=== PATIENT | female | born 1970 | race Two or more races ===

== ENCOUNTER 2018-03-23 14:35 | Emergency (ER) | payer OTHER ==
[2018-03-23] MEDS ORDERED: ALBUTEROL SO4 2.5/IPRATROPIUM 0.5 INH SOL 3 ML VIAL.NEB. NEB ONE ×2 (14:40→14:51)
--- NOTE | 2018-03-23 14:40 | PDOC ---
Rapid Medical Evaluation Time Seen by Provider: 03/23/18 14:37 Medical Evaluation: Allergies Allergy/AdvReac Type Severity Reaction Status Date / Time No Known Allergies Allergy Verified 07/22/14 17:38 03/23/18 14:37 I have performed a brief in-person evaluation of this patient. The patient presents with a chief complaint of: cough back pain for 3 months . LMP 02/23/18 no foreign travel. Pertinent physical exam findings:lungs with wheezing and coarse lung sounds I have ordered the following:[id number] , upreg The patient will proceed to the ED for further evaluation. 03/23/18 14:40 Discharge Disposition - Diagnosis Acute bronchitis Qualifiers: Bronchitis organism: other organism Qualified Code(s): J20.8 - Acute bronchitis due to other specified organisms - Discharge Dispostion Disposition: HOME Condition at time of disposition: Stable - Prescriptions Prescriptions: Albuterol Sulfate Inhaler - [Ventolin HFA Inhaler -] 2 inh PO Q6H #1 inh predniSONE [Deltasone -] 40 mg PO BID #10 tablet Ranitidine HCl [Zantac] 150 mg PO BID #10 tablet - Referrals Referrals: Good Le MD [Staff Physician] - - Patient Instructions Printed Discharge Instructions: DI for Acute Bronchitis Additional Instructions: Increase fluids Rest Tylenol alternate with Motrin a needed every 6 hours for pain/fever Prednisone as prescribed/must finish dosages Inhaler as prescribed Follow up with your physician or the one listed on your discharge Return to the ER for severe/persistent/worsening symptoms - Post Discharge Activity
[2018-03-23 14:41] VITALS: BP 125/74; PULSE 74; TEMP 97.9; BMI 27.2
--- NOTE | 2018-03-23 15:07 | PDOC ---
History of Present Illness - General Chief Complaint: Respiratory Stated Complaint: CHEST PAIN Time Seen by Provider: 03/23/18 14:37 History Source: Patient Exam Limitations: No Limitations - History of Present Illness Initial Comments: 03/23/18 15:03 Best Contact:[phone] PCP:n/a Pmhx:0 Pshx:0 Allergies:NKDA FH:0 Social Hx: Cigarettes/ 0 Alcohol/ 0 Drugs/0 LMP:02/23/2018 47-year-old female presents to the ER with her daughter complaining of nonproductive cough without fever, chills, nausea/vomiting, headache, dizziness , lightheadedness, facial pains, rhinorrhea, nasal congestion, earache, sore throat, difficulty swallowing, neck pain/stiffness, back pains, chest pain, shortness of breath, abdominal pains, flank pains, urinary symptoms. Patient states she had the same symptoms with fever 2 weeks ago and was given amoxicillin. Patient states she feels a lot better but when she takes a deep breath, she coughs. Patient denied any fever. Patient states she is able to eat and drink without any difficulties. Patient has not taken anything over-the- counter for supportive care. Past History - Past Medical History Allergies/Adverse Reactions: Allergies Allergy/AdvReac Type Severity Reaction Status Date / Time No Known Allergies Allergy Verified 07/22/14 17:38 Home Medications: Ambulatory Orders NK [No Known Home Medication] 03/23/18 COPD: No - Suicide/Smoking/Psychosocial Hx Smoking History: Never smoked Review of Systems - Review of Systems Able to Perform ROS?: Yes Comments:: 03/23/18 15:03 CONSTITUTIONAL: Absent: fever, chills, diaphoresis, generalized weakness, malaise, loss of appetite HEENT: Absent: rhinorrhea, nasal congestion, throat pain, throat swelling, difficulty swallowing, mouth swelling, ear pain, eye pain, visual Changes CARDIOVASCULAR: Absent: chest pain, loss of consciousness, palpitations, irregular heart rate, peripheral edema RESPIRATORY: +cough, wheeziing Absent: shortness of breath, dyspnea with exertion, orthopnea, stridor, hemoptysis GASTROINTESTINAL: Absent: abdominal pain, abdominal distension, nausea, vomiting, diarrhea, constipation, melena, hematochezia GENITOURINARY: Absent: dysuria, frequency, urgency, hesitancy, hematuria, flank pain, genital pain MUSCULOSKELETAL: Absent: myalgia, arthralgia, joint swelling SKIN: Absent: rash, itching, pallor HEMATOLOGIC/IMMUNOLOGIC: Absent: easy bleeding, easy bruising, lymphadenopathy, frequent infections ENDOCRINE: Absent: unexplained weight gain, unexplained weight loss, heat intolerance, cold intolerance Is the patient limited Burkinan proficient: No *Physical Exam - Vital Signs Last Vital Signs Temp Pulse Resp BP Pulse Ox 97.9 F 74 18 125/74 96 03/23/18 14:39 03/23/18 14:39 03/23/18 14:39 03/23/18 14:39 03/23/18 14:39 - Physical Exam Comments: 03/23/18 15:04 GENERAL: Well developed, well nourished. Awake and alert. No acute distress. HEENT: Normocephalic, atraumatic. PERRLA, EOMI. No conjunctival pallor. Sclera are non- icteric. Moist mucous membranes. Oropharynx is clear. NECK: Supple. Full ROM. No JVD. Carotid pulses 2+ and symmetric, without bruits. No thyromegaly. No lymphadenopathy. CARDIOVASCULAR: Regular rate and rhythm. No murmurs, rubs, or gallops. Distal pulses are 2+ and symmetric. PULMONARY: +Bibasalar exp wheezes with good air exchange No evidence of respiratory distress. No rales or rhonchi. ABDOMINAL: Soft. Non-tender. Non-distended. No rebound or guarding. No organomegaly. Normoactive bowel sounds. MUSCULOSKELETAL Normal range of motion at all joints. No bony deformities or tenderness. No CVA tenderness. EXTREMITIES: No cyanosis. No clubbing. No edema. No calf tenderness. SKIN: Warm and dry. Normal capillary refill. No rashes. No jaundice. NEUROLOGICAL: Alert, awake, appropriate. Cranial nerves 2-12 intact. No deficits to light touch and temperature in face, upper extremities and lower extremities. No motor deficits in the in face, upper extremities and lower extremities. Normoreflexic in the upper and lower extremities. Normal speech. Toes are down- going bilaterally. Gait is normal without ataxia. PSYCHIATRIC: Cooperative. Good eye contact. Appropriate mood and affect. Moderate Sedation - Procedure Monitoring Vital Signs: Procedure Monitoring Vital Signs Temperature 97.9 F 03/23/18 14:39 Pulse Rate 74 03/23/18 14:39 Respiratory Rate 18 03/23/18 14:39 Blood Pressure 125/74 03/23/18 14:39 O2 Sat by Pulse Oximetry (%) 96 03/23/18 14:39 ED Treatment Course - ADDITIONAL ORDERS Additional order review: Laboratory Results 03/23/18 14:45 Urine HCG, Qual Negative *DC/Admit/Observation/Transfer Diagnosis at time of Disposition: Acute bronchitis Qualifiers: Bronchitis organism: other organism Qualified Code(s): J20.8 - Acute bronchitis due to other specified organisms - Discharge Dispostion Condition at time of disposition: Stable Decision to Admit order: No - Referrals Referrals: Good Le MD [Staff Physician] - - Patient Instructions Printed Discharge Instructions: DI for Acute Bronchitis Additional Instructions: Increase fluids Rest Tylenol alternate with Motrin a needed every 6 hours for pain/fever Prednisone as prescribed/must finish dosages Inhaler as prescribed Follow up with your physician or the one listed on your discharge Return to the ER for severe/persistent/worsening symptoms - Post Discharge Activity
== END 2018-03-23 15:36 | disposition home or self-care (01) ==
LOC: JERFT 14:35
PROC: 3E0F7GC Introduction of Other Therapeutic Substance into Respiratory Tract, Via Natural or Artificial Opening (ICD-10-PCS; principal; 2018-03-23)
DX: J20.8 Acute bronchitis due to other specified organisms (principal)
CPT/HCPCS: 84703; 99281-25

== ENCOUNTER 2018-08-07 17:02 | Emergency (ER) | payer OTHER | END 2018-08-07 22:25 | disposition home or self-care (01) | LOC: JERFT 17:02 → JER 22:25 ==

== ENCOUNTER 2019-04-15 09:41 | Emergency (ER) | payer OTHER ==
[2019-04-15 09:50] VITALS: BP 135/85; PULSE 82; TEMP 97.7; BMI 33.9
[2019-04-15] MEDS ORDERED: ALBUTEROL SO4 2.5/IPRATROPIUM 0.5 INH SOL 3 ML VIAL.NEB. NEB ONE (10:35)
[2019-04-15] MEDS: ALBUTEROL SO4 2.5/IPRATROPIUM 0.5 INH SOL 3 ML VIAL.NEB. NEB SCH ×3 (10:39→11:05)
--- NOTE | 2019-04-15 11:38 | PDOC ---
History of Present Illness - General Chief Complaint: Cold Symptoms Stated Complaint: HEADACHE/LUNG PAIN Time Seen by Provider: 04/15/19 10:13 History Source: Patient Exam Limitations: No Limitations Past History - Past Medical History Allergies/Adverse Reactions: Allergies Allergy/AdvReac Type Severity Reaction Status Date / Time No Known Allergies Allergy Verified 04/15/19 09:47 Home Medications: Ambulatory Orders Albuterol 0.083% Nebulizer Betty [Ventolin 0.083% Nebulizer Soln -] 1 neb NEB Q4H PRN #25 vial 08/07/18 Albuterol Sulfate Inhaler - [Ventolin HFA Inhaler -] 1 - 2 inh PO Q4H PRN #1 inhaler 08/07/18 Nebulizer [Aeroeclipse II] 1 each MC QID #1 each 08/07/18 Albuterol 0.083% Nebulizer Betty [Ventolin 0.083% Nebulizer Soln -] 1 neb NEB Q4H PRN #30 vial 04/15/19 Asthma: Yes COPD: No - Immunization History Immunization Up to Date: Yes - Psycho Social/Smoking Cessation Hx Smoking History: Never smoked *Physical Exam - Vital Signs Last Vital Signs Temp Pulse Resp BP Pulse Ox 97.7 F 82 18 135/85 99 04/15/19 09:48 04/15/19 09:48 04/15/19 09:48 04/15/19 09:48 04/15/19 09:48 - Physical Exam General Appearance: No: Apparent Distress HEENT: positive: Normal ENT Inspection, TMs Normal, Pharynx Normal Respiratory/Chest: positive: Wheezing (very minimal expiratory wheeze). negative: Respiratory Distress, Accessory Muscle Use, Labored Respiration Cardiovascular: positive: Regular Rhythm, Regular Rate, S1, S2. negative: Murmur Integumentary: positive: Normal Color Neurologic: positive: Alert ED Treatment Course - Medications Given in the ED: ED Medications Discontinued Medications Generic Name Dose Route Start Last Admin Trade Name Freq PRN Reason Stop Dose Admin Albuterol/Ipratropium 1 amp 04/15/19 10:30 04/15/19 11:05 Duoneb - NEB 04/15/19 11:01 1 amp Q15M YUDELKA Administration Medical Decision Making - Medical Decision Making 48 y/o F hx of asthma (never hospitalized, never intubated) presents as recently with flu-like sxs last week which resolved 2 days ago, but having increased wheezing. Has asthma meds which help, but does not have albuterol nebulizer solution. Denies recent travel, other complaints. Given duonebs x3 Patient feeling better on reassessment stable for dc 04/15/19 11:35 Discharge - Discharge Information Problems reviewed: Yes Clinical Impression/Diagnosis: Asthma Qualifiers: Asthma severity: mild Asthma persistence: unspecified Asthma complication type : uncomplicated Qualified Code(s): J45.909 - Unspecified asthma, uncomplicated Condition: Stable Disposition: HOME - Admission No - Additional Discharge Information Prescriptions: Albuterol 0.083% Nebulizer Betty [Ventolin 0.083% Nebulizer Soln -] 1 neb NEB Q4H PRN #30 vial PRN Reason: Wheezing Prescription Drug Monitoring Program (I-STOP) results: I-STOP not reviewed - Follow up/Referral Referrals: Good Le MD [Primary Care Provider] - 2 Days - Patient Discharge Instructions Patient Printed Discharge Instructions: DI for Asthma -- Adult - Post Discharge Activity
== END 2019-04-15 11:46 | disposition home or self-care (01) ==
LOC: JERFT 09:41
PROC: 3E0F7GC Introduction of Other Therapeutic Substance into Respiratory Tract, Via Natural or Artificial Opening (ICD-10-PCS; principal; 2019-04-15)
DX: J45.909 Unspecified asthma, uncomplicated (principal)
CPT/HCPCS: 94640; 99281-25